=== PATIENT | male | born 1945 | race Hispanic/Latino ===

== ENCOUNTER 2021-10-16 06:29 | Day surgery (SDC) | payer MEDICARE ==
[2021-10-16] MEDS ORDERED: ASPIRIN EC 325 MG TAB PO NR (07:10)
[2021-10-16 07:38] LABS: Basophils % (Auto) 0.6 % (0.0-1.8); Eosinophils # (Auto) 0.3 K/mm3 (0.0-0.4); Eosinophils % (Auto) 3.7 % (0.0-4.3); Hematocrit 43.3 % (35.5-45.6); Hemoglobin 13.7 gm/dl (11.8-15.2); Lymphocytes # (Auto) 2.9 K/mm3 (1.2-5.4); Lymphocytes % (Auto) 37.9 % (13.4-35.0); Mean Corpuscular HGB Conc 32 % (32-34); Mean Corpuscular Volume 89 fl (84-94); Monocytes # (Auto) 0.8 K/mm3 (0.0-0.8); Monocytes % (Auto) 10.7 % (0.0-7.3); Platelet Count 229 K/mm3 (140-440); Red Blood Count 4.86 M/mm3 (3.65-5.03); Red Cell Distribution Width 14.4 % (13.2-15.2)
[2021-10-16 07:48] LABS: BUN/Creatinine Ratio 11; Blood Urea Nitrogen 11 mg/dL (9-20); Calcium 9.2 mg/dL (8.4-10.2); Hemolysis Index 7; INR 0.91 (0.87-1.13); Partial Thromboplastin Time 26.5 Sec. (24.2-36.6)
[2021-10-16] MEDS: SODIUM CHLORIDE 0.9% 500 ML 500 ML IV SCH ×2 (08:23→10:46)
[2021-10-16] MEDS ORDERED: ONDANSETRON 4 MG/2 ML INJ ONE (10:23)
[2021-10-16] MEDS ORDERED: MIDAZOLAM 2 MG/2 ML INJ ONE (10:29)
[2021-10-16] MEDS ORDERED: NITROGLYCERIN SYRINGE 0 ML ONE (10:29)
[2021-10-16] MEDS ORDERED: VERAPAMIL 5 MG/2 ML INJ ONE (10:29)
[2021-10-16] MEDS ORDERED: LIDOCAINE (2%) 20 MG/1 ML VIAL 20 ML MDV INFILTRATI ONE (10:29)
[2021-10-16] MEDS ORDERED: fentaNYL 100 MCG/2 ML INJ ONE (10:29)
[2021-10-16] MEDS ORDERED: HEPARIN 10,000 UNITS/10 ML VIAL ONE (10:29)
[2021-10-16] MEDS ORDERED: HEPARIN/NS 5000 UNIT/500ML 1,000 ML IR ONE (10:29)
[2021-10-16] MEDS ORDERED: ATROPINE 0.1% (1 MG/10 ML) CARDIAC SYRINGE ONE (11:51)
[2021-10-16] MEDS ORDERED: SODIUM CHLORIDE 0.9% 1000 ML 1,000 ML IV SCH (12:00)
--- NOTE | 2021-10-16 13:33 | Cardiac Catherization Report ---
DATE OF SERVICE: 10/16/2021 REASON FOR PROCEDURE: The patient is a 75-year-old man who reports no symptoms of chest pain or shortness of breath, but in preparation for a urological surgery procedure, he underwent a thallium stress test that was described as abnormal with some inferolateral reversible defect, which prompted a recommendation for cardiac catheterization. The patient has an extensive cardiac history. In 2000, he underwent a 3-vessel coronary bypass with a left internal mammary artery graft to the LAD, a saphenous vein graft to a high diagonal branch of the LAD and another saphenous vein graft to the mid obtuse marginal branch of the circumflex. 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 The right coronary itself was described as small and nondominant. Following that, in 2011, the patient underwent a repeat cardiac catheterization at [facility]; and he states following that, a stent was placed in one of his bypass grafts. Soon after that, another cardiac catheterization, also at [facility], per the patient described that the stented segment within the bypass graft had also closed and he was placed on medical therapy. He has had no significant chest pain or cardiac ischemia symptoms on medical therapy. The risks and the benefits of this procedure were discussed with the patient and he consents to proceed. PROCEDURES: 1. Left heart catheterization. 2. Selective left and right coronary angiography. 3. Angiography of the left internal mammary artery graft. 4. Angiography of the saphenous vein grafts. 5. Left ventricular angiography. 6. Sedation time start 11:08, end 11:28. DESCRIPTION OF PROCEDURE: The patient was prepped and draped in a sterile fashion after informed consent. The right femoral artery was entered using Seldinger technique followed by placement of a 6-[place] sheath. Selective left and right coronary angiography was performed using #4 right and left Steve catheters. The right Steve was used for saphenous vein graft angiography. We then exchanged for a left internal mammary artery graft catheter for left internal mammary artery graft angiography. Finally, we exchanged for a pigtail catheter, which was used for left ventricular angiography. The catheters were then removed, sheath removed and hemostasis achieved using manual compression. The patient was returned to the postprocedure unit in stable condition. There were no complications. FINDINGS: HEMODYNAMICS: Left ventricular end-diastolic pressure was 18, following coronary angiography. Ascending aortic pressure was 111/67. There was no significant pressure gradient on pullback across the aortic valve. CORONARY ANGIOGRAPHY: The left main coronary artery was free of significant disease. Following that, there were mild irregularities of the proximal LAD, which also was widely patent. The left internal mammary artery graft to the LAD was atrophied, but patent, providing some competitive flow to a widely patent target vessel. The high diagonal branch of the LAD was a [id number] vessel that contained mild ostial narrowing, mild irregularities in its proximal segment. The previous saphenous vein graft to this vessel was closed at its ostium. However, we have noted that the target vessel is also patent with only mild narrowing at its ostium. The circumflex artery was previously reported to have originated anomalously from the right coronary cusp. Right coronary cusp injection at this time does not show any evidence of circumflex patency, and the saphenous vein graft directed to the circumflex system was also occluded at its origin. A previous stent was noted on fluoroscopy within the course of this vein graft. The right coronary artery was a small caliber vessel, nondominant, terminating in a medium-sized right ventricular branch. There was a 90% stenosis of the proximal vessel, followed by a long segment of diffuse severe atherosclerosis of its mid segment. The left ventricle was mildly dilated, there was mild left ventricular systolic dysfunction with ejection fraction 40-45%. CONCLUSION: 1. Coronary artery disease as above. 2. Patent, but atrophied left internal mammary artery graft to the LAD, we note that the left main and LAD target remain widely patent with a normal competitive flow. 3. Occluded saphenous vein graft to the large proximal diagonal branch of the LAD. We also do note that this target vessel is also widely patent with only mild narrowing observed at its ostium. 4. Occluded saphenous vein graft to the circumflex system. The circumflex was reported to have originated anomalously from the right coronary cusp, and is not visible on right coronary cusp injection, presumed occluded. 5. Right coronary artery is small, nondominant and severely diseased, was not previously bypassed. 6. Mild left ventricular systolic dysfunction with ejection fraction 40-45%. RECOMMENDATIONS: Aggressive risk factor modification, and medical therapy for small vessel disease. TID: [id number] RECEIPT: [id number] CA/CHRISTY/SIMONA TORRESD
[2021-10-16] MEDS ORDERED: ACETAMINOPHEN 500 MG TAB ONE (15:06)
[2021-10-16] MEDS ORDERED: ACETAMINOPHEN 500 MG TAB PO ONE (16:03)
[2021-10-16 16:18] VITALS: BP 128/77
--- NOTE | 2021-10-16 17:44 | Discharge Summary ---
Short Stay Discharge Plan Activity: advance as tolerated Weight Bearing Status: Weight Bear as Tolerated Diet: low fat, low cholesterol, low salt Wound: keep clean and dry Special Instructions: no heavy lifting (3 days) Follow up with: GIOVANNI JOSEPH MD [Primary Care Provider] - 7 Days YOLANDA SRINIVASAN MD [Staff Physician] - 7 Days Forms: [employer] PCI D/C Instructions
--- NOTE | 2021-10-17 08:55 | Electrocardiograph Report ---
[facility] Test Date: 2021-10-16 Test Time: 07:34:20 Pat Name: CHRISTINA DAVIS Department: Room: Gender: M Computer Drafter: JUAN : 1945 Requested By: DARI ARELLANO Order Number: [id number] Reading MD: Robe Simmons Measurements Intervals [place] Rate: 62 P: -37 NE: 176 QRS: 37 QRSD: 75 T: 60 QT: 422 QTc: 428 Interpretive Statements Sinus rhythm No previous ECG available for comparison Electronically Signed On 10-17-2021 8:54:51 EST by Robe Simmons
== END 2021-10-16 06:30 | disposition home or self-care (01) ==
LOC: CATHLABREC 06:29
PROVIDERS: ATTEND Internal Medicine
DX: R94.30 Abnormal result of cardiovascular function study, unspecified (principal); R94.39 Abnormal result of other cardiovascular function study; I25.10 Atherosclerotic heart disease of native coronary artery without angina pectoris; I10 Essential (primary) hypertension; E78.00 Pure hypercholesterolemia, unspecified; K21.9 Gastro-esophageal reflux disease without esophagitis; M19.90 Unspecified osteoarthritis, unspecified site; D64.9 Anemia, unspecified; F41.9 Anxiety disorder, unspecified; Z79.82 Long term (current) use of aspirin; Z79.899 Other long term (current) drug therapy; Z87.891 Personal history of nicotine dependence; Z88.5 Allergy status to narcotic agent; Z98.890 Other specified postprocedural states; Z82.49 Family history of ischemic heart disease and other diseases of the circulatory system
CPT/HCPCS: 36415; 80048; 85025; 85610; 85730; 93005; 93010; 93459; 99156; C1894; J1644; J2250; J2405; J3010; J3490; J7030; J7040; J1815; Q0162; J0461; Q9967